=== PATIENT | female | born 1975 | race Caucasian/White ===

== ENCOUNTER → 2016-08-13 | Outpatient (CLI) | payer OTHER ==
[~2016-08-13] MED LIST: ASCA500 PO; CETI10TA84 PO; FERR325T51 PO; MTR600X PO; OXYC5TAB PO; PRENTAB26 PO
[2016-08-13 17:02] LABS: PREG INTERNAL NEGATIVE QC NEG CLEAR BACKGROUND; PREG INTERNAL POSITIVE QC POS CONTROL LINE
== END | disposition home or self-care (01) ==
LOC: C.LAB1850 16:06
PROVIDERS: ATTEND Obstetrics & Gynecology
DX: N91.2 Amenorrhea, unspecified (principal)

== ENCOUNTER → 2017-09-22 | Outpatient (CLI) | payer OTHER | END | disposition home or self-care (01) | LOC: C.LAB1850 16:05 | PROVIDERS: ATTEND Family Medicine | DX: R63.5 Abnormal weight gain (principal) ==